=== PATIENT | male | born 1970 | race American Indian/Alaskan Native ===

== ENCOUNTER 2020-06-22 14:08 | Inpatient (IN) | payer OTHER ==
--- NOTE | 2020-06-22 15:14 | XRay Report ---
CHEST 2 VIEWS INDICATION / CLINICAL INFORMATION: shortness of breath. COMPARISON: None available. FINDINGS: SUPPORT DEVICES: None. HEART / MEDIASTINUM: There is mild enlargement of the cardiac silhouette LUNGS / PLEURA: There is airspace opacity noted in the right lower lobe suspicious for pneumonia No p neumothorax. ADDITIONAL FINDINGS: No significant additional findings. IMPRESSION: 1. There is airspace opacity in right lower lobe suspicious for pneumonia. 2. There is mild enlargement of the cardiac silhouette Signer Name: Jerrell Bronson MD Signed: 06/22/2020 3:10 PM Workstation Name: [id number]
--- NOTE | 2020-06-22 15:33 | Event Note ---
ED Screening Note ED Screening Note: Patient presents for shortness of breath, chest pain, cough for a month He states it is a nonproductive cough He states his shortness of breath is worse with exertion He denies any fever, vomiting, diarrhea, leg swelling He states that he has not seen a doctor in a very long time or had his blood pressure checked He denies any sick contacts or recent travel He is a current every day smoker No allergies to medications This initial assessment/diagnostic orders/clinical plan/treatment(s) is/are subject to change based on patients health status, clinical progression and re- assessment by fellow clinical providers in the ED. Further treatment and workup at subsequent clinical providers discretion. Patient/guardian urged not to elope from the ED as their condition may be serious if not clinically assessed and managed. Initial orders include: Labs, EKG, chest x-ray
[2020-06-22 15:42] LABS: Hematocrit 39.5 % (35.5-45.6); Hemoglobin 13.4 gm/dl (11.8-15.2); Mean Corpuscular HGB Conc 34 % (32-34); Mean Corpuscular Volume 90 fl (84-94); Platelet Count 254 K/mm3 (140-440); Red Blood Count 4.38 M/mm3 (3.65-5.03); Red Cell Distribution Width 13.7 % (13.2-15.2)
[2020-06-22 16:05] LABS: Alanine Aminotransferase 24 units/L (7-56); BUN/Creatinine Ratio 15; Blood Urea Nitrogen 18 mg/dL (9-20); Calcium 8.4 mg/dL (8.4-10.2); Hemolysis Index 6
[2020-06-22 16:35] LABS: Chol/HDL Ratio 4.25 %; HDL Cholesterol 39 mg/dL (40-59); LDL Cholesterol,Direct 117 mg/dL (50-130)
[2020-06-22 16:36] LABS: Total Cells Counted 100
[2020-06-22 16:37] LABS: RBC Morphology Normal
--- NOTE | 2020-06-22 18:04 | Emergency Department Report ---
ED General Adult HPI - General Chief complaint: Upper Respiratory Infection Stated complaint: DIFF BREATHING Time Seen by Provider: 06/22/20 15:30 Source: patient Mode of arrival: Ambulatory Limitations: No Limitations - History of Present Illness Initial comments: Patient is a 49-year-old male with no significant past medical history who presents to the emergency department for evaluation of 1 month history of exertional dyspnea with occasional nonproductive cough and possible tactile fever. Patient denies chest pain, denies history of high blood pressure, hypercholesterolemia, heart disease, or diabetes. Patient does note his mother had heart disease and that he has not seen a primary physician in quite some time. - Related Data Previous Rx's Medication Instructions Recorded Last Taken Type Ibuprofen [Motrin] 800 mg PO Q8HR PRN #90 tablet 03/23/15 Unknown Rx Sulfamethoxazole/Trimethoprim 1 each PO BID #20 tablet 03/23/15 Unknown Rx [Bactrim DS TAB] traMADoL [Ultram] 50 mg PO Q6HR PRN #14 tablet 03/23/15 Unknown Rx Allergies Allergy/AdvReac Type Severity Reaction Status Date / Time No Known Allergies Allergy Unverified 03/23/15 18:28 ED Review of Systems ROS: Stated complaint: DIFF BREATHING Other details as noted in HPI Comment: All other systems reviewed and negative ED Past Medical Hx - Past Medical History Previous Medical History?: No - Surgical History Past Surgical History?: No - Social History Smoking Status: Current Every Day Smoker - Medications Home Medications: Home Medications Medication Instructions Recorded Confirmed Last Taken Type Ibuprofen [Motrin] 800 mg PO Q8HR PRN #90 tablet 03/23/15 Unknown Rx Sulfamethoxazole/Trimethoprim 1 each PO BID #20 tablet 15 Unknown Rx [Bactrim DS TAB] traMADoL [Ultram] 50 mg PO Q6HR PRN #14 tablet 03/23/15 Unknown Rx ED Physical Exam - General Limitations: No Limitations General appearance: alert, in no apparent distress - Head Head exam: Present: atraumatic, normocephalic - Eye Eye exam: Present: normal appearance - ENT ENT exam: Present: mucous membranes moist - Neck Neck exam: Present: normal inspection - Respiratory Respiratory exam: Present: rales, rhonchi - Cardiovascular Cardiovascular Exam: Present: regular rate, normal rhythm - GI/Abdominal GI/Abdominal exam: Present: soft, normal bowel sounds - Rectal Rectal exam: Present: deferred - Extremities Exam Extremities exam: Present: normal inspection - Back Exam Back exam: Present: normal inspection - Neurological Exam Neurological exam: Present: alert, oriented X3 - Psychiatric Psychiatric exam: Present: normal affect, normal mood - Skin Skin exam: Present: warm, dry, intact, normal color. Absent: rash ED Course Vital Signs 06/22/20 06/22/20 14:14 18:12 Temperature 98.3 F Pulse Rate 101 H Respiratory 20 18 Rate Blood Pressure 188/118 O2 Sat by Pulse 99 100 Oximetry - Reevaluation(s) Reevaluation #1: Patient initially treated with IV furosemide, IV Rocephin, IV azithromycin, p.o. aspirin, and p.o. potassium. 06/22/20 18:14 06/22/20 18:15 ED Medical Decision Making - Lab Data Result diagrams: 06/22/20 15:32 06/22/20 15:32 Lab Results 06/22/20 06/22/20 Range/Units 15:32 15:32 WBC 5.5 (4.5-11.0) K/mm3 RBC 4.38 (3.65-5.03) M/mm3 Hgb 13.4 (11.8-15.2) gm/dl Hct 39.5 (35.5-45.6) % MCV 90 (84-94) fl MCH 31 (28-32) pg MCHC 34 (32-34) % RDW 13.7 (13.2-15.2) % Plt Count 254 (140-440) K/mm3 [place] % (Auto) Physical Scientist Add Manual Diff Complete Total Counted 100 Seg Neuts % (Manual) 62.0 (40.0-70.0) % Lymphocytes % (Manual) 23.0 (13.4-35.0) % Monocytes % (Manual) 15.0 H (0.0-7.3) % Nucleated RBC % Not Reportable Seg Neutrophils # Man 3.4 (1.8-7.7) K/mm3 Band Neutrophils # 0.0 K/mm3 Lymphocytes # (Manual) 1.3 (1.2-5.4) K/mm3 Abs React Lymphs (Man) 0.0 K/mm3 Monocytes # (Manual) 0.8 (0.0-0.8) K/mm3 Eosinophils # (Manual) 0.0 (0.0-0.4) K/mm3 Basophils # (Manual) 0.0 (0.0-0.1) K/mm3 Metamyelocytes # 0.0 K/mm3 Myelocytes # 0.0 K/mm3 Promyelocytes # 0.0 K/mm3 Blast Cells # 0.0 K/mm3 WBC Morphology Not Reportable Hypersegmented Neuts Not Reportable Hyposegmented Neuts Not Reportable Hypogranular Neuts Not Reportable Smudge Cells Not Reportable Toxic Granulation Not Reportable Toxic Vacuolation Not Reportable Dohle Bodies Not Reportable Pelger-Huet Anomaly Not Reportable Andrzej Rods Not Reportable Platelet Estimate Not Reportable Clumped Platelets Not Reportable Plt Clumps, EDTA Not Reportable Large Platelets Not Reportable Giant Platelets Not Reportable Platelet Satelliting Not Reportable Plt Morphology Comment Not Reportable RBC Morphology Normal Dimorphic RBCs Not Reportable Polychromasia Not Reportable Hypochromasia Not Reportable Poikilocytosis Not Reportable Anisocytosis Not Reportable Microcytosis Not Reportable Macrocytosis Not Reportable Spherocytes Not Reportable Pappenheimer Bodies Not Reportable Sickle Cells Not Reportable Target Cells Not Reportable Tear Drop Cells Not Reportable Ovalocytes Not Reportable Helmet Cells Not Reportable [place] Bodies Not Reportable [place] Rings Not Reportable [place] Cells Not Reportable Bite Cells Not Reportable Crenated Cell Not Reportable Elliptocytes Not Reportable Acanthocytes (Spur) Not Reportable Rouleaux Not Reportable Hemoglobin C Crystals Not Reportable Schistocytes Not Reportable Malaria parasites Not Reportable [place] Bodies Not Reportable Hem Pathologist Commnt No Sodium 140 (137-145) mmol/L Potassium 3.2 L (3.6-5.0) mmol/L Chloride 102.8 (98-107) mmol/L Carbon Dioxide 24 (22-30) mmol/L Anion Gap 16 mmol/L BUN 18 (9-20) mg/dL Creatinine 1.2 (0.8-1.3) mg/dL Estimated GFR > 60 ml/min BUN/Creatinine Ratio 15 % Glucose 110 H (75-100) mg/dL Calcium 8.4 (8.4-10.2) mg/dL Total Bilirubin 0.40 (0.1-1.2) mg/dL AST 21 (5-40) units/L ALT 24 (7-56) units/L Alkaline Phosphatase 97 (35-129) units/L Troponin T 0.062 H (0.00-0.029) ng/mL NT-Pro-B Natriuret Pep 2400 H (0-900) pg/mL Total Protein 6.3 (6.3-8.2) g/dL Albumin 4.0 (3.9-5) g/dL Albumin/Globulin Ratio 1.7 % Triglycerides 105 (2-149) mg/dL Cholesterol 166 (50-199) mg/dL LDL Cholesterol Direct 117 (50-130) mg/dL HDL Cholesterol 39 L (40-59) mg/dL Cholesterol/HDL Ratio 4.25 % Vital Signs 06/22/20 06/22/20 14:14 18:12 Temperature 98.3 F Pulse Rate 101 H Respiratory 20 18 Rate Blood Pressure 188/118 O2 Sat by Pulse 99 100 Oximetry - EKG Data -: EKG Interpreted by Me (Sinus rhythm at 98, nonspecific ST-T changes, inverted T V5 V6, normal QRS) - Radiology Data Referring Physician: KIARA GARDNER Patient Name: LUIS ALBERTO MARCUM Date of : 1970 Sex: Male Report Date: 2020-06-22 Report Status: [place] [address] XRay Report Signed Patient: LUIS ALBERTO MARCUM MR#: [id number] : 1970 Acct:[id number] Age/Sex: 49 / M ADM Date: 06/22/20 Loc: ED Attending Dr: Ordering Physician: KIARA GARDNER Date of Service: 06/22/20 Procedure(s): XR chest routine 2V Accession Number(s): [id number] cc: KIARA GARDNER Fluoro Time In Minutes: CHEST 2 VIEWS INDICATION / CLINICAL INFORMATION: shortness of breath. COMPARISON: None available. FINDINGS: SUPPORT DEVICES: None. HEART / MEDIASTINUM: There is mild enlargement of the cardiac silhouette LUNGS / PLEURA: There is airspace opacity noted in the right lower lobe suspicious for pneumonia No pneumothorax. ADDITIONAL FINDINGS: No significant additional findings. IMPRESSION: 1. There is airspace opacity in right lower lobe suspicious for pneumonia. 2. There is mild enlargement of the cardiac silhouette Signer Name: Jerrell Siegal MD Signed: 06/22/2020 3:10 PM Workstation Name: [id number] Transcribed By: GÓMEZ Dictated By: Jerrell Bronson MD Electronically Authenticated By: Jerrell Bronson MD Signed Date/Time: 06/22/20 1510 - Medical Decision Making Referring Physician: KIARA GARDNER Patient Name: LUIS ALBERTO MARCUM Date of : 1970 Sex: Male Report Date: 2020-06-22 Report Status: Finalized [facility] [address] [place] [address] XRay Report Signed Patient: LUIS ALBERTO MARCUM MR#: [id number] : 1970 Acct:[id number] Age/Sex: 49 / M ADM Date: 06/22/20 Loc: ED Attending Dr: Ordering Physician: KIARA GARDNER Date of Service: 06/22/20 Procedure(s): XR chest routine 2V Accession Number(s): [id number] cc: KIARA GARDNER Fluoro Time In Minutes: CHEST 2 VIEWS INDICATION / CLINICAL INFORMATION: shortness of breath. COMPARISON: None available. FINDINGS: SUPPORT DEVICES: None. HEART / MEDIASTINUM: There is mild enlargement of the cardiac silhouette LUNGS / PLEURA: There is airspace opacity noted in the right lower lobe suspicious for pneumonia No pneumothorax. ADDITIONAL FINDINGS: No significant additional findings. IMPRESSION: 1. There is airspace opacity in right lower lobe suspicious for pneumonia. 2. There is mild enlargement of the cardiac silhouette Signer Name: Jerrell Bronson MD Signed: 06/22/2020 3:10 PM Workstation Name: [id number] Transcribed By: SS Dictated By: Jerrell Bronson MD Electronically Authenticated By: Jerrell Bronson MD Signed Date/Time: 06/22/201509 Critical care attestation.: If time is entered above; I have spent that time in minutes in the direct care of this critically ill patient, excluding procedure time. ED Disposition Clinical Impression: Community acquired pneumonia, New onset of congestive heart failure Disposition: OP ADMIT IP TO THIS HOSP Is pt being admited?: Yes Does the pt Need Aspirin: Yes Condition: Stable Instructions: Bacterial Pneumonia (ED) Referrals: PRIMARY CARE, [Primary Care Provider] - 3-5 Days HEART Score - HEART Score History: Moderately suspicious EKG: Non-specific Age: 45-65 Risk factors: 1-2 risk factors Troponin: Troponin T 0.062 ng/mL (0.00-0.029) H 06/22/20 15:32 Troponin: 1-3x normal limit HEART Score: 5
[2020-06-22] MEDS ORDERED: ASPIRIN 325 MG TAB PO ONE (18:05)
[2020-06-22] MEDS ORDERED: AZITHROMYCIN/NS 500 MG/250 ML 500 MG/250 ML BAG IV ONE (18:05)
[2020-06-22] MEDS ORDERED: cefTRIAXone/NS 1 GM/50 ML 1 GM/50 ML BAG IV ONE (18:05)
[2020-06-22] MEDS ORDERED: POTASSIUM CHLORIDE ER 20 MEQ TAB PO ONE (18:07)
[2020-06-22] MEDS ORDERED: FUROSEMIDE 40 MG/4 ML INJ IV ONE (18:07)
[2020-06-22 18:57] LABS: C-Reactive Protein 0.8 mg/dL (0.00-1.30)
[2020-06-22] MEDS ORDERED: ONDANSETRON 4 MG/2 ML INJ IV PRN (19:10)
[2020-06-22] MEDS ORDERED: ACETAMINOPHEN 325 MG TAB PO PRN ×2 (19:10)
[2020-06-22] MEDS ORDERED: NITROGLYCERIN 0.4 MG TAB SUBL SL PRN (19:10)
[2020-06-22] MEDS ORDERED: MORPHINE 4 MG/1 ML INJ IV PRN (19:10)
--- NOTE | 2020-06-22 19:26 | History and Physical Report ---
History of Present Illness Date of examination: 06/22/20 Date of admission: 06/22/2020 Chief complaint: Shortness of Breath Chest Pain History of present illness: 49-year-old male with no significant past medical history presenting to the emergency room today complaining of exertional dyspnea and cough which has been ongoing for about a month. He has also had some occasional fever at home but denies any chills, no nausea vomiting, no chest pain, no headache or dizziness, no diaphoresis, no abdominal pain, no hematuria or dysuria. Patient denies any sick contacts and no recent travel. Denies any contact with anyone with COVID- 19. Evaluation in the emergency room today reveals elevated troponin, EKG was nonspecific. Chest x-ray was concerning for pneumonia in the right lower lobe. Patient is being admitted for pneumonia and will also be evaluated for chest pain with elevated troponin. Past History Past Medical History: No medical history Past Surgical History: No surgical history Social history: smoking (Former Smoker) Family history: no significant family history Medications and Allergies Allergies Allergy/AdvReac Type Severity Reaction Status Date / Time No Known Allergies Allergy Unverified 03/23/15 18:28 Home Medications Medication Instructions Recorded Confirmed Last Taken Type Ibuprofen [Motrin] 800 mg PO Q8HR PRN #90 tablet 03/23/15 Unknown Rx Sulfamethoxazole/Trimethoprim 1 each PO BID #20 tablet 03/23/15 Unknown Rx [Bactrim DS TAB] traMADoL [Ultram] 50 mg PO Q6HR PRN #14 tablet 03/23/15 Unknown Rx Review of Systems Constitutional: fever, no chills Ears, nose, mouth and throat: no nasal congestion, no sore throat Cardiovascular: chest pain, no palpitations Respiratory: shortness of breath, no cough Gastrointestinal: no abdominal pain, no nausea, no vomiting, no diarrhea Genitourinary Male: no dysuria, no hematuria, no flank pain, no nocturia Musculoskeletal: no neck pain, no low back pain Integumentary: no rash, no pruritis Neurological: no headaches, no confusion Psychiatric: no anxiety, no depression Exam - Constitutional Vitals: Temp Pulse Resp BP Pulse Ox 98.3 F 101 H 18 188/118 100 06/22/20 14:14 06/22/20 14:14 06/22/20 18:12 06/22/20 14:14 06/22/20 18:12 General appearance: Present: no acute distress, well-nourished - EENT Eyes: Present: PERRL, EOM intact. Absent: scleral icterus ENT: hearing intact, clear oral mucosa, dentition normal - Neck Neck: Present: supple, normal ROM - Respiratory Respiratory effort: normal Respiratory: bilateral: diminished - Cardiovascular Rhythm: regular Heart Sounds: Present: S1 & S2. Absent: gallop, systolic murmur, diastolic murmur, rub - Extremities Extremities: no ischemia, pulses intact, pulses symmetrical, No edema, normal temperature, normal color, Full ROM Peripheral Pulses: within normal limits - Abdominal General gastrointestinal: Present: soft, non-tender, non-distended, normal bowel sounds. Absent: mass - Integumentary Integumentary: Present: clear, warm, dry. Absent: rash - Musculoskeletal Musculoskeletal: strength equal bilaterally - Psychiatric Psychiatric: appropriate mood/affect, intact judgment & insight, memory intact, cooperative - Neurologic Neurologic: CNII-XII intact, no focal deficits, moves all extremities HEART Score - HEART Score History: Moderately suspicious EKG: Non-specific Age: 45-65 Risk factors: 1-2 risk factors Troponin: Troponin T 0.064 ng/mL (0.00-0.029) H 06/22/20 18:11 Troponin: 1-3x normal limit HEART Score: 5 Results - Labs CBC & Chem 7: 06/22/20 19:48 06/22/20 19:48 Labs: Abnormal lab results 06/22/20 06/22/20 06/22/20 Range/Units 15:32 15:32 18:11 Monocytes % (Manual) 15.0 H (0.0-7.3) % D-Dimer (0-234) ng/mlDDU Potassium 3.2 L (3.6-5.0) mmol/L Glucose 110 H (75-100) mg/dL Lactate Dehydrogenase (91-180) units/L Troponin T 0.062 H 0.064 H (0.00-0.029) ng/mL NT-Pro-B Natriuret Pep 2400 H (0-900) pg/mL HDL Cholesterol 39 L (40-59) mg/dL 06/22/20 06/22/20 Range/Units 18:31 18:31 Monocytes % (Manual) (0.0-7.3) % D-Dimer 292.70 H (0-234) ng/mlDDU Potassium (3.6-5.0) mmol/L Glucose (75-100) mg/dL Lactate Dehydrogenase 257 H (91-180) units/L Troponin T (0.00-0.029) ng/mL NT-Pro-B Natriuret Pep (0-900) pg/mL HDL Cholesterol (40-59) mg/dL Assessment and Plan - Patient Problems (1) Community acquired pneumonia Current Visit: Yes Status: Acute Plan to address problem: Patient placed on empiric IV antibiotics. We will await culture results. (2) Chest pain Current Visit: Yes Status: Acute Plan to address problem: We will check serial cardiac enzymes. Patient placed on aspirin, sublingual nitroglycerin and IV morphine as needed for chest pain. We will place consult to cardiology for evaluation. (3) DVT prophylaxis Current Visit: Yes Status: Acute Plan to address problem: Patient currently on anticoagulation. (4) Full code status Current Visit: Yes Status: Acute Plan to address problem: Patient is a full code.
[2020-06-22 20:12] LABS: Hematocrit 40.5 % (35.5-45.6); Hemoglobin 13.7 gm/dl (11.8-15.2); Mean Corpuscular HGB Conc 34 % (32-34); Mean Corpuscular Volume 90 fl (84-94); Platelet Count 259 K/mm3 (140-440); Red Cell Distribution Width 13.2 % (13.2-15.2)
[2020-06-22 20:29] LABS: BUN/Creatinine Ratio 15; Blood Urea Nitrogen 16 mg/dL (9-20); Calcium 8.2 mg/dL (8.4-10.2); Hemolysis Index 15
[2020-06-22 21:07] LABS: RBC Morphology Normal; Total Cells Counted 100
[2020-06-22] MEDS ORDERED: HEPARIN 10,000 UNITS/10 ML VIAL IV PRN (21:22)
[2020-06-22] MEDS ORDERED: HEPARIN 10,000 UNITS/10 ML VIAL IV ONE (21:22)
[2020-06-22] MEDS ORDERED: HYDROmorphone 1 MG/1 ML INJ IV ONE (21:54)
[2020-06-22] MEDS ORDERED: HEPARIN 5,000 UNIT/1 ML VIAL ONE (21:58)
[2020-06-22] MEDS: HEPARIN/ 0.45% NACL DRIP 25,000 UNIT/500 ML BAG IV SCH (22:40)
[2020-06-23 01:11] LABS: Hematocrit 39.1 % (35.5-45.6); Hemoglobin 13.1 gm/dl (11.8-15.2); INR 1.45 (0.87-1.13)
[2020-06-23 06:13] LABS: Basophils % (Auto) 0.5 % (0.0-1.8); Eosinophils # (Auto) 0.1 K/mm3 (0.0-0.4); Eosinophils % (Auto) 1.3 % (0.0-4.3); Hematocrit 39.2 % (35.5-45.6); Hemoglobin 13.1 gm/dl (11.8-15.2); Lymphocytes # (Auto) 2.1 K/mm3 (1.2-5.4); Lymphocytes % (Auto) 42.3 % (13.4-35.0); Mean Corpuscular HGB Conc 33 % (32-34); Mean Corpuscular Volume 91 fl (84-94); Monocytes # (Auto) 0.7 K/mm3 (0.0-0.8); Monocytes % (Auto) 13.2 % (0.0-7.3); Platelet Count 235 K/mm3 (140-440); Red Blood Count 4.29 M/mm3 (3.65-5.03); Red Cell Distribution Width 13.3 % (13.2-15.2)
[2020-06-23 06:21] LABS: INR 1.26 (0.87-1.13)
[2020-06-23 06:29] LABS: BUN/Creatinine Ratio 13; Blood Urea Nitrogen 14 mg/dL (9-20); Calcium 8.3 mg/dL (8.4-10.2); Hemolysis Index 7
[2020-06-23] MEDS ORDERED: POTASSIUM CHLORIDE ER 20 MEQ TAB PO NR (08:00)
--- NOTE | 2020-06-23 09:27 | Consultation ---
History of Present Illness Consult date: 06/23/20 Consult reason: chest pain, elevated troponin History of present illness: This is a 49yr old M with who presents to this hospital with shortness of breath. Chest x-ray is concerning for pneumonia and he is currently on isolation protocol. COVID-19 test results are pending. In addition, patient reports chest pain. Chest pain is poorly characterized, on exertion, intermittent for several weeks. Denies palpitations and there is no lower extremity edema. No report of syncope. Patient has no prior medical history but was noted hypertensive on presentation, systolic BP of 188. Labs shows mild elevation of troponin measurement. An ECG done is sinus rhythm, LVH with repolarization abnormalities. A cardiac consultation has been requested for chest pain. Past History Past Medical History: No medical history Past Surgical History: No surgical history Social history: smoking (Former Smoker) Family history: no significant family history Medications and Allergies Allergies Allergy/AdvReac Type Severity Reaction Status Date / Time No Known Allergies Allergy Unverified 03/23/15 18:28 Home Medications Medication Instructions Recorded Confirmed Last Taken Type Ibuprofen [Motrin] 800 mg PO Q8HR PRN #90 tablet 03/23/15 Unknown Rx Sulfamethoxazole/Trimethoprim 1 each PO BID #20 tablet 03/23/15 Unknown Rx [Bactrim DS TAB] traMADoL [Ultram] 50 mg PO Q6HR PRN #14 tablet 03/23/15 Unknown Rx Active Meds: Active Medications Acetaminophen (Acetaminophen 325 Mg Tab) 650 mg PO Q4H PRN PRN Reason: Pain MILD(1-3)/Fever >100.5/MAYS Aspirin (Aspirin Ec 325 Mg Tab) 325 mg PO QDAY CAMRYN Ceftriaxone Sodium (Rocephin/Ns 2 Gm/100 Ml) 2 gm in 100 mls @ 200 mls/hr IV Q24H CAMRYN; Protocol Azithromycin 500 mg/ Sodium (Chloride) 250 mls @ 250 mls/hr IV Q24H CAMRYN; Protocol Stop: 06/26/20 20:59 Heparin Sodium/Sodium Chloride (Heparin/ 0.45% Nacl-25,000 Unit/500 Ml) 25,000 unit in 500 mls @ 20 mls/hr IV TITRATE CAMRYN; Protocol Last Titration: 06/23/20 06:26 Dose: 1,100 units/hr, 22 mls/hr Documented by: Morphine Sulfate (Morphine 4 Mg/1 Ml Inj) 2 mg IV Q5MIN PRN PRN Reason: Chest Pain Nitroglycerin (Nitroglycerin 0.4 Mg Tab Subl) 0.4 mg SL Q5M PRN PRN Reason: Chest Pain Ondansetron HCl (Ondansetron 4 Mg/2 Ml Inj) 4 mg IV Q8H PRN PRN Reason: Nausea And Vomiting Potassium Chloride (Potassium Chloride Er 20 Meq Tab) 40 meq PO ONCE@0800 NR Stop: 06/23/20 11:00 Last Admin: 06/23/20 08:43 Dose: 40 meq Documented by: Sodium Chloride (Sodium Chloride 0.9% 10 Ml Flush Syringe) 10 ml IV BID CAMRYN Last Admin: 06/22/20 22:40 Dose: 10 ml Documented by: Sodium Chloride (Sodium Chloride 0.9% 10 Ml Flush Syringe) 10 ml IV PRN PRN PRN Reason: LINE FLUSH Review of Systems Cardiovascular: chest pain, shortness of breath, no palpitations, no rapid/irregular heart beat, no edema, no syncope, no lightheadedness Physical Examination Vital Signs Temp Pulse Resp BP Pulse Ox 98.3 F 101 H 20 188/118 99 06/22/20 14:14 06/22/20 14:14 06/22/20 14:14 06/22/20 14:14 06/22/20 14:14 Narrative exam: Deferred due to isolation protocol Results 06/23/20 04:43 06/23/20 04:43 Cardiac Enzymes 06/22/20 06/22/20 Range/Units 15:32 18:31 AST 21 (5-40) units/L Lactate Dehydrogenase 257 H (91-180) units/L Coagulation 06/23/20 06/23/20 Range/Units 00:00 04:43 PT 17.6 H 15.8 H (12.2-14.9) Sec. INR 1.45 H 1.26 H (0.87-1.13) APTT 72.0 H* (24.2-36.6) Sec. Lipids 06/22/20 Range/Units 15:32 Triglycerides 105 (2-149) mg/dL Cholesterol 166 (50-199) mg/dL HDL Cholesterol 39 L (40-59) mg/dL Cholesterol/HDL Ratio 4.25 % CBC 06/22/20 06/22/20 06/23/20 Range/Units 15:32 19:48 00:00 WBC 5.5 4.7 (4.5-11.0) K/mm3 RBC 4.38 4.50 (3.65-5.03) M/mm3 Hgb 13.4 13.7 13.1 (11.8-15.2) gm/dl Hct 39.5 40.5 39.1 (35.5-45.6) % Plt Count 254 259 236 (140-440) K/mm3 Lymph # (Auto) (1.2-5.4) K/mm3 [place] # (Auto) (0.0-0.8) K/mm3 Eos # (Auto) (0.0-0.4) K/mm3 Baso # (Auto) (0.0-0.1) K/mm3 06/23/20 Range/Units 04:43 WBC 5.0 (4.5-11.0) K/mm3 RBC 4.29 (3.65-5.03) M/mm3 Hgb 13.1 (11.8-15.2) gm/dl Hct 39.2 (35.5-45.6) % Plt Count 235 (140-440) K/mm3 Lymph # (Auto) 2.1 (1.2-5.4) K/mm3 [place] # (Auto) 0.7 (0.0-0.8) K/mm3 Eos # (Auto) 0.1 (0.0-0.4) K/mm3 Baso # (Auto) 0.0 (0.0-0.1) K/mm3 Comprehensive Metabolic Panel 06/22/20 06/22/20 06/22/20 Range/Units 15:32 18:31 19:48 Sodium 140 138 (137-145) mmol/L Potassium 3.2 L 3.6 (3.6-5.0) mmol/L Chloride 102.8 101.1 (98-107) mmol/L Carbon Dioxide 24 22 (22-30) mmol/L BUN 18 16 (9-20) mg/dL Creatinine 1.2 1.1 (0.8-1.3) mg/dL Glucose 110 H 92 103 H (75-100) mg/dL Calcium 8.4 8.2 L (8.4-10.2) mg/dL AST 21 (5-40) units/L ALT 24 (7-56) units/L Alkaline Phosphatase 97 (35-129) units/L Total Protein 6.3 (6.3-8.2) g/dL Albumin 4.0 (3.9-5) g/dL 06/23/20 Range/Units 04:43 Sodium 140 (137-145) mmol/L Potassium 3.2 L (3.6-5.0) mmol/L Chloride 100.2 (98-107) mmol/L Carbon Dioxide 28 (22-30) mmol/L BUN 14 (9-20) mg/dL Creatinine 1.1 (0.8-1.3) mg/dL Glucose 94 (75-100) mg/dL Calcium 8.3 L (8.4-10.2) mg/dL AST (5-40) units/L ALT (7-56) units/L Alkaline Phosphatase (35-129) units/L Total Protein (6.3-8.2) g/dL Albumin (3.9-5) g/dL Assessment and Plan - Patient Problems (1) Chest pain Current Visit: Yes Status: Acute
[2020-06-23] MEDS: ASPIRIN EC 325 MG TAB PO SCH (09:36)
--- NOTE | 2020-06-23 10:59 | Progress Note ---
Assessment and Plan Assessment and plan: (1) Community acquired pneumonia Current Visit: Yes Status: Acute Plan to address problem: Patient placed on empiric IV antibiotics. COVID-19 test pending (2) Chest pain Current Visit: Yes Status: Acute Plan to address problem: Cardiology evaluation Plan for stress test after COVID result comes out (3) DVT prophylaxis Current Visit: Yes Status: Acute Plan to address problem: Patient currently on anticoagulation. (4) Full code status Current Visit: Yes Status: Acute Plan to address problem: Patient is a full code. History Interval history: Denies any chest pain Lexiscan cancelled for now. Awaiting COVID-19 test Hospitalist Physical - Physical exam Narrative exam: VITAL SIGNS: Reviewed. GENERAL: Awake HEAD: No signs of head trauma. EYES: Pupils are equal. Extraocular motions intact. MOUTH: Oropharynx is normal. NECK: No adenopathy, no JVD. CHEST: Chest with diminished breath sounds bilaterally. No wheezes, rales, or rhonchi. CARDIAC: normal S1 and S2, without murmurs, gallops, or rubs. ABDOMEN: Soft, non tender and non distended. No rebound or guarding, and no masses palpated. Bowel Sounds normal. MUSCULOSKELETAL: No edema NEUROLOGIC EXAM: Alert and oriented x3. No focal neurologic deficits SKIN: No obvious lesions - Constitutional Vitals: Temp Pulse Resp BP Pulse Ox 98.2 F 77 18 151/94 92 06/23/20 05:22 06/23/20 06:29 06/23/20 06:29 06/23/20 06:29 06/23/20 06:29 HEART Score - HEART Score EKG: Non-specific Age: 45-65 Risk factors: 1-2 risk factors Troponin: Troponin T 0.055 ng/mL (0.00-0.029) H 06/23/20 04:43 Troponin: 1-3x normal limit Results - Labs CBC & Chem 7: 06/23/20 04:43 06/23/20 04:43 Labs: Laboratory Last Values WBC 5.0 K/mm3 (4.5-11.0) 06/23/20 04:43 RBC 4.29 M/mm3 (3.65-5.03) 06/23/20 04:43 Hgb 13.1 gm/dl (11.8-15.2) 06/23/20 04:43 Hct 39.2 % (35.5-45.6) 06/23/20 04:43 MCV 91 fl (84-94) 06/23/20 04:43 MCH 31 pg (28-32) 06/23/20 04:43 MCHC 33 % (32-34) 06/23/20 04:43 RDW 13.3 % (13.2-15.2) 06/23/20 04:43 Plt Count 235 K/mm3 (140-440) 06/23/20 04:43 Lymph % (Auto) 42.3 % (13.4-35.0) H 06/23/20 04:43 [place] % (Auto) 13.2 % (0.0-7.3) H 06/23/20 04:43 Eos % (Auto) 1.3 % (0.0-4.3) 06/23/20 04:43 Baso % (Auto) 0.5 % (0.0-1.8) 06/23/20 04:43 Lymph # (Auto) 2.1 K/mm3 (1.2-5.4) 06/23/20 04:43 [place] # (Auto) 0.7 K/mm3 (0.0-0.8) 06/23/20 04:43 Eos # (Auto) 0.1 K/mm3 (0.0-0.4) 06/23/20 04:43 Baso # (Auto) 0.0 K/mm3 (0.0-0.1) 06/23/20 04:43 Add Manual Diff Complete 06/22/20 19:48 Total Counted 100 06/22/20 19:48 Seg Neutrophils % 42.7 % (40.0-70.0) 06/23/20 04:43 Seg Neuts % (Manual) 59.0 % (40.0-70.0) 06/22/20 19:48 Lymphocytes % (Manual) 24.0 % (13.4-35.0) 06/22/20 19:48 Monocytes % (Manual) 15.0 % (0.0-7.3) H 06/22/20 19:48 Eosinophils % (Manual) 2.0 % (0.0-4.3) 06/22/20 19:48 Nucleated RBC % Not Reportable 06/22/20 19:48 Seg Neutrophils # 2.1 K/mm3 (1.8-7.7) 06/23/20 04:43 Seg Neutrophils # Man 2.8 K/mm3 (1.8-7.7) 06/22/20 19:48 Band Neutrophils # 0.0 K/mm3 06/22/20 19:48 Lymphocytes # (Manual) 1.1 K/mm3 (1.2-5.4) L 06/22/20 19:48 Abs React Lymphs (Man) 0.0 K/mm3 06/22/20 19:48 Monocytes # (Manual) 0.7 K/mm3 (0.0-0.8) 06/22/20 19:48 Eosinophils # (Manual) 0.1 K/mm3 (0.0-0.4) 06/22/20 19:48 Basophils # (Manual) 0.0 K/mm3 (0.0-0.1) 06/22/20 19:48 Metamyelocytes # 0.0 K/mm3 06/22/20 19:48 Myelocytes # 0.0 K/mm3 06/22/20 19:48 Promyelocytes # 0.0 K/mm3 06/22/20 19:48 Blast Cells # 0.0 K/mm3 06/22/20 19:48 WBC Morphology Not Reportable 06/22/20 19:48 Hypersegmented Neuts Not Reportable 06/22/20 19:48 Hyposegmented Neuts Not Reportable 06/22/20 19:48 Hypogranular Neuts Not Reportable 06/22/20 19:48 Smudge Cells Not Reportable 06/22/20 19:48 Toxic Granulation Not Reportable 06/22/20 19:48 Toxic Vacuolation Not Reportable 06/22/20 19:48 Dohle Bodies Not Reportable 06/22/20 19:48 Pelger-Huet Anomaly Not Reportable 06/22/20 19:48 Andrzej Rods Not Reportable 06/22/20 19:48 Platelet Estimate Not Reportable 06/22/20 19:48 Clumped Platelets Not Reportable 06/22/20 19:48 Plt Clumps, EDTA Not Reportable 06/22/20 19:48 Large Platelets Not Reportable 06/22/20 19:48 Giant Platelets Not Reportable 06/22/20 19:48 Platelet Satelliting Not Reportable 06/22/20 19:48 Plt Morphology Comment Not Reportable 06/22/20 19:48 RBC Morphology Normal 06/22/20 19:48 Dimorphic RBCs Not Reportable 06/22/20 19:48 Polychromasia Not Reportable 06/22/20 19:48 Hypochromasia Not Reportable 06/22/20 19:48 Poikilocytosis Not Reportable 06/22/20 19:48 Anisocytosis Not Reportable 06/22/20 19:48 Microcytosis Not Reportable 06/22/20 19:48 Macrocytosis Not Reportable 06/22/20 19:48 Spherocytes Not Reportable 06/22/20 19:48 Pappenheimer Bodies Not Reportable 06/22/20 19:48 Sickle Cells Not Reportable 06/22/20 19:48 Target Cells Not Reportable 06/22/20 19:48 Tear Drop Cells Not Reportable 06/22/20 19:48 Ovalocytes Not Reportable 06/22/20 19:48 Helmet Cells Not Reportable 06/22/20 19:48 [place] Bodies Not Reportable 06/22/20 19:48 [place] Rings Not Reportable 06/22/20 19:48 [place] Cells Not Reportable 06/22/20 19:48 Bite Cells Not Reportable 06/22/20 19:48 Crenated Cell Not Reportable 06/22/20 19:48 Elliptocytes Not Reportable 06/22/20 19:48 Acanthocytes (Spur) Not Reportable 06/22/20 19:48 Rouleaux Not Reportable 06/22/20 19:48 Hemoglobin C Crystals Not Reportable 06/22/20 19:48 Schistocytes Not Reportable 06/22/20 19:48 Malaria parasites Not Reportable 06/22/20 19:48 [place] Bodies Not Reportable 06/22/20 19:48 Hem Pathologist Commnt No 06/22/20 19:48 PT 15.8 Sec. (12.2-14.9) H 06/23/20 04:43 INR 1.26 (0.87-1.13) H 06/23/20 04:43 APTT 72.0 Sec. (24.2-36.6) H* 06/23/20 00:00 D-Dimer 292.70 ng/mlDDU (0-234) H 06/22/20 18:31 Heparin Anti-Xa Level 0.10 U.I./ml (0.3-0.7) L 06/23/20 04:43 Sodium 140 mmol/L (137-145) 06/23/20 04:43 Potassium 3.2 mmol/L (3.6-5.0) L 06/23/20 04:43 Chloride 100.2 mmol/L (98-107) 06/23/20 04:43 Carbon Dioxide 28 mmol/L (22-30) 06/23/20 04:43 Anion Gap 15 mmol/L 06/23/20 04:43 BUN 14 mg/dL (9-20) 06/23/20 04:43 Creatinine 1.1 mg/dL (0.8-1.3) 06/23/20 04:43 Estimated GFR > 60 ml/min 06/23/20 04:43 BUN/Creatinine Ratio 13 % 06/23/20 04:43 Glucose 94 mg/dL (75-100) 06/23/20 04:43 Lactic Acid 1.60 mmol/L (0.7-2.0) 06/22/20 18:26 Calcium 8.3 mg/dL (8.4-10.2) L 06/23/20 04:43 Ferritin 187.3 ng/mL (30.0-300.0) 06/22/20 18:31 Total Bilirubin 0.40 mg/dL (0.1-1.2) 06/22/20 15:32 AST 21 units/L (5-40) 06/22/20 15:32 ALT 24 units/L (7-56) 06/22/20 15:32 Alkaline Phosphatase 97 units/L (35-129) 06/22/20 15:32 Lactate Dehydrogenase 257 units/L (91-180) H 06/22/20 18:31 Troponin T 0.055 ng/mL (0.00-0.029) H 06/23/20 04:43 C-Reactive Protein 0.80 mg/dL (0.00-1.30) 06/22/20 18:31 NT-Pro-B Natriuret Pep 2400 pg/mL (0-900) H 06/22/20 15:32 Total Protein 6.3 g/dL (6.3-8.2) 06/22/20 15:32 Albumin 4.0 g/dL (3.9-5) 06/22/20 15:32 Albumin/Globulin Ratio 1.7 % 06/22/20 15:32 Triglycerides 105 mg/dL (2-149) 06/22/20 15:32 Cholesterol 166 mg/dL (50-199) 06/22/20 15:32 LDL Cholesterol Direct 117 mg/dL (50-130) 06/22/20 15:32 HDL Cholesterol 39 mg/dL (40-59) L 06/22/20 15:32 Cholesterol/HDL Ratio 4.25 % 06/22/20 15:32 Procalcitonin < 0.05 ng/mL (<0.15) 06/22/20 18:31 Microbiology: Microbiology 06/22/20 18:26 Peripheral/Venous Blood Culture - Preliminary Culture in Progress 06/22/20 18:26 Peripheral/Venous Blood Culture - Preliminary Culture in Progress Ayoub/IV: Voiding Method Toilet IV Catheter Type [Right INT / Saline Lock Forearm] Active Medications - Current Medications Current Medications: Generic Name Dose Route Start Last Admin Trade Name Freq PRN Reason Stop Dose Admin Acetaminophen 650 mg 06/22/20 19:10 Acetaminophen 325 Mg Tab PO Q4H PRN Pain MILD(1-3)/Fever >100.5/MAYS Aspirin 325 mg 06/23/20 10:00 06/23/20 09:36 Aspirin Ec 325 Mg Tab PO 325 mg QDAY CAMRYN Administration Ceftriaxone Sodium 2 gm in 100 mls @ 200 mls/hr 06/23/20 20:00 Rocephin/Ns 2 Gm/100 Ml IV Q24H CAMRYN Protocol Azithromycin 500 mg/ Sodium 250 mls @ 250 mls/hr 06/23/20 20:00 Chloride IV 06/26/20 20:59 Q24H CAMRYN Protocol Heparin Sodium/Sodium Chloride 25,000 unit in 500 mls @ 20 mls/hr 06/22/20 22:00 06/23/20 06:26 Heparin/ 0.45% Nacl-25,000 Unit/500 Ml IV 1,100 units/hr TITRATE CAMRYN 22 mls/hr Titration Protocol 1,000 UNITS/HR Morphine Sulfate 2 mg 06/22/20 19:10 Morphine 4 Mg/1 Ml Inj IV Q5MIN PRN Chest Pain Nitroglycerin 0.4 mg 06/22/20 19:10 Nitroglycerin 0.4 Mg Tab Subl SL Q5M PRN Chest Pain Ondansetron HCl 4 mg 06/22/20 19:10 Ondansetron 4 Mg/2 Ml Inj IV Q8H PRN Nausea And Vomiting Potassium Chloride 40 meq 06/23/20 08:00 06/23/20 08:43 Potassium Chloride Er 20 Meq Tab PO 06/23/20 11:00 40 meq ONCE@0800 NR Administration Sodium Chloride 10 ml 06/22/20 22:00 06/22/20 22:40 Sodium Chloride 0.9% 10 Ml Flush Syringe IV 10 ml BID CAMRYN Administration Sodium Chloride 10 ml 06/22/20 19:10 Sodium Chloride 0.9% 10 Ml Flush Syringe IV PRN PRN LINE FLUSH
[2020-06-23] MEDS: NIFEdipine XL 60 MG TAB PO SCH (12:52)
--- NOTE | 2020-06-23 15:20 | Consultation ---
History of Present Illness - Reason for Consult Consult date: 06/23/20 - History of Present Illness 49-year-old man no past medical history brought to the emergency room complaining of shortness of breath on exertion. Began approximately 1 month prior to admission. He complains of some subjective fevers at home, denies any chills, vomiting. He does not know of any positive COVID-19 contacts. Afebrile with a normal white count. Normal renal function and normal procalcitonin. Covid testing pending. Currently on ceftriaxone and azithromycin. Blood cultures currently pending. Imaging personally reviewed: Chest x-ray: Airspace opacity in the right lower lobe Review of systems: Deferred due to PPE conservation strategy. Past History Past Medical History: No medical history Past Surgical History: No surgical history Social history: smoking (Former Smoker) Family history: no significant family history Medications and Allergies Allergies Allergy/AdvReac Type Severity Reaction Status Date / Time No Known Allergies Allergy Unverified 03/23/15 18:28 Home Medications Medication Instructions Recorded Confirmed Last Taken Type Ibuprofen [Motrin] 800 mg PO Q8HR PRN #90 tablet 03/23/15 Unknown Rx Sulfamethoxazole/Trimethoprim 1 each PO BID #20 tablet 03/23/15 Unknown Rx [Bactrim DS TAB] traMADoL [Ultram] 50 mg PO Q6HR PRN #14 tablet 03/23/15 Unknown Rx Active Meds: Active Medications Acetaminophen (Acetaminophen 325 Mg Tab) 650 mg PO Q4H PRN PRN Reason: Pain MILD(1-3)/Fever >100.5/MAYS Aspirin (Aspirin Ec 325 Mg Tab) 325 mg PO QDAY CAMRYN Last Admin: 06/23/20 09:36 Dose: 325 mg Documented by: Ceftriaxone Sodium (Rocephin/Ns 2 Gm/100 Ml) 2 gm in 100 mls @ 200 mls/hr IV Q24H CAMRYN; Protocol Azithromycin 500 mg/ Sodium (Chloride) 250 mls @ 250 mls/hr IV Q24H CAMRYN; Protocol Stop: 06/26/20 20:59 Heparin Sodium/Sodium Chloride (Heparin/ 0.45% Nacl-25,000 Unit/500 Ml) 25,000 unit in 500 mls @ 20 mls/hr IV TITRATE CAMRYN; Protocol Last Titration: 06/23/20 06:26 Dose: 1,100 units/hr, 22 mls/hr Documented by: Morphine Sulfate (Morphine 4 Mg/1 Ml Inj) 2 mg IV Q5MIN PRN PRN Reason: Chest Pain Nifedipine (Nifedipine Xl 60 Mg Tab) 60 mg PO QDAY [facility] Last Admin: 06/23/20 12:52 Dose: 60 mg Documented by: Nitroglycerin (Nitroglycerin 0.4 Mg Tab Subl) 0.4 mg SL Q5M PRN PRN Reason: Chest Pain Ondansetron HCl (Ondansetron 4 Mg/2 Ml Inj) 4 mg IV Q8H PRN PRN Reason: Nausea And Vomiting Sodium Chloride (Sodium Chloride 0.9% 10 Ml Flush Syringe) 10 ml IV BID [facility] Last Admin: 06/23/20 12:53 Dose: 10 ml Documented by: Sodium Chloride (Sodium Chloride 0.9% 10 Ml Flush Syringe) 10 ml IV PRN PRN PRN Reason: LINE FLUSH Physical Examination - Physical Exam Narrative exam: Physical exam deferred due to PPE conservation strategy. Please refer to p mike team's note. - Constitutional Vitals: Vital Signs Temp Pulse Resp BP Pulse Ox 98.2 F 77 18 151/94 92 06/23/20 05:22 06/23/20 06:29 06/23/20 06:29 06/23/20 06:29 06/23/20 06:29 Temperature -Last 24 Hours Temperature 98.2 F Temperature 97.5 F Results - Labs CBC & Chem 7: 06/23/20 04:43 06/23/20 04:43 Labs: Abnormal lab results 06/22/20 06/22/20 06/22/20 Range/Units 15:32 15:32 18:11 Lymph % (Auto) (13.4-35.0) % Nicholas % (Auto) (0.0-7.3) % Monocytes % (Manual) 15.0 H (0.0-7.3) % Lymphocytes # (Manual) (1.2-5.4) K/mm3 PT (12.2-14.9) Sec. INR (0.87-1.13) APTT (24.2-36.6) Sec. D-Dimer (0-234) ng/mlDDU Heparin Anti-Xa Level (0.3-0.7) U.I./ml Potassium 3.2 L (3.6-5.0) mmol/L Glucose 110 H (75-100) mg/dL Calcium (8.4-10.2) mg/dL Lactate Dehydrogenase (91-180) units/L Troponin T 0.062 H 0.064 H (0.00-0.029) ng/mL NT-Pro-B Natriuret Pep 2400 H (0-900) pg/mL HDL Cholesterol 39 L (40-59) mg/dL 06/22/20 06/22/20 06/22/20 Range/Units 18:31 18:31 19:48 Lymph % (Auto) (13.4-35.0) % Nicholas % (Auto) (0.0-7.3) % Monocytes % (Manual) 15.0 H (0.0-7.3) % Lymphocytes # (Manual) 1.1 L (1.2-5.4) K/mm3 PT (12.2-14.9) Sec. INR (0.87-1.13) APTT (24.2-36.6) Sec. D-Dimer 292.70 H (0-234) ng/mlDDU Heparin Anti-Xa Level (0.3-0.7) U.I./ml Potassium (3.6-5.0) mmol/L Glucose (75-100) mg/dL Calcium (8.4-10.2) mg/dL Lactate Dehydrogenase 257 H (91-180) units/L Troponin T (0.00-0.029) ng/mL NT-Pro-B Natriuret Pep (0-900) pg/mL HDL Cholesterol (40-59) mg/dL 06/22/20 06/23/20 06/23/20 Range/Units 19:48 00:00 04:43 Lymph % (Auto) (13.4-35.0) % Nicholas % (Auto) (0.0-7.3) % Monocytes % (Manual) (0.0-7.3) % Lymphocytes # (Manual) (1.2-5.4) K/mm3 PT 17.6 H 15.8 H (12.2-14.9) Sec. INR 1.45 H 1.26 H (0.87-1.13) APTT 72.0 H* (24.2-36.6) Sec. D-Dimer (0-234) ng/mlDDU Heparin Anti-Xa Level 0.10 L (0.3-0.7) U.I./ml Potassium (3.6-5.0) mmol/L Glucose 103 H (75-100) mg/dL Calcium 8.2 L (8.4-10.2) mg/dL Lactate Dehydrogenase (91-180) units/L Troponin T (0.00-0.029) ng/mL NT-Pro-B Natriuret Pep (0-900) pg/mL HDL Cholesterol (40-59) mg/dL 06/23/20 06/23/20 06/23/20 Range/Units 04:43 04:43 04:43 Lymph % (Auto) 42.3 H (13.4-35.0) % Nicholas % (Auto) 13.2 H (0.0-7.3) % Monocytes % (Manual) (0.0-7.3) % Lymphocytes # (Manual) (1.2-5.4) K/mm3 PT (12.2-14.9) Sec. INR (0.87-1.13) APTT (24.2-36.6) Sec. D-Dimer (0-234) ng/mlDDU Heparin Anti-Xa Level (0.3-0.7) U.I./ml Potassium 3.2 L (3.6-5.0) mmol/L Glucose (75-100) mg/dL Calcium 8.3 L (8.4-10.2) mg/dL Lactate Dehydrogenase (91-180) units/L Troponin T 0.055 H (0.00-0.029) ng/mL NT-Pro-B Natriuret Pep (0-900) pg/mL HDL Cholesterol (40-59) mg/dL Assessment and Plan Cultures: Blood culture pending Covid pending A/P: 49-year-old man no known past medical history admitted to hospital complaining of 1 month shortness of breath, Covid PUI. #Right-sided pneumonia: Covid PUI. Follow-up test results. Has had prolonged symptoms of shortness of breath. May be other etiologies involved as well. Normal procalcitonin. Normal white count. Normal inflammatory markers. #Hypertension #Elevated troponins Recs: -Follow-up Covid testing -Anticoagulation per hospital protocol -Stopped antibiotics due to normal procalcitonin and white count. Thank you for the consult, we will continue to follow. Sadaf Hamilton MD [facility] ([facility] O: [phone] F: [phone]
[2020-06-23] MEDS ORDERED: AZITHROMYCIN 500 MG in SODIUM CHLORIDE 0.9% 250ML 250 ML IV SCH (20:00)
[2020-06-23] MEDS ORDERED: cefTRIAXone/NS 2 GM/100 ML 2 GM/100 ML BAG IV SCH (20:00)
[2020-06-23] MEDS: HEPARIN/ 0.45% NACL DRIP 25,000 UNIT/500 ML BAG IV SCH (22:44)
[2020-06-24 07:19] LABS: Hematocrit 41.1 % (35.5-45.6); Hemoglobin 13.8 gm/dl (11.8-15.2)
--- NOTE | 2020-06-24 09:32 | Progress Note ---
Assessment and Plan COVID-19 viral pneumonia Mild elevation in troponin unchanged on serial measurements pt currently denies chest pain Hypertension, uncertain chronicity he has not had medical contact in many years. Continue optimal blood pressure management. Otherwise, conservative cardiac management. We will follow intermittently. Subjective Date of service: 06/24/20 Interval history: No cardiac reports overnight. Blood pressure has improved. Objective Vital Signs Temp Pulse Resp BP Pulse Ox 06/24/20 06:20 18 94 06/24/20 05:31 98.5 F 90 17 141/96 91 06/23/20 23:54 98.2 F 83 20 138/88 94 06/23/20 16:50 97.9 F 98 H 18 153/99 97 06/23/20 16:48 95 H 97 06/23/20 11:06 98.1 F 97 H 20 146/102 95 - Physical Examination Narrative exam: Deferred due to isolation protocol General: No Apparent Distress Cardiac: Positive: Reg Rate and Rhythm - Labs and Meds CBC 06/24/20 Range/Units 06:33 Hgb 13.8 (11.8-15.2) gm/dl Hct 41.1 (35.5-45.6) % Plt Count 260 (140-440) K/mm3
[2020-06-24] MEDS: NIFEdipine XL 60 MG TAB PO SCH (09:45)
[2020-06-24] MEDS: ASPIRIN EC 325 MG TAB PO SCH (09:45)
--- NOTE | 2020-06-24 10:21 | Discharge Summary ---
Providers - Providers Date of Admission: 06/24/20 08:26 Date of discharge: 06/24/20 Attending physician: ANA MARIA ALLEN 06/22/20 Consult to Cardiac Rehabilitation [CONS] Routine Reason For Exam: Phase I 06/22/20 19:10 Consult to Cardiology [CONS] Routine Consulting Provider: ALEXX DAVIS Reason For Exam: chest pain , elevated troponoin Consult to Physician [CONS] Routine Comment: Consulting Provider: BRYANT IBRAHIM Physician Instructions: Reason For Exam: Pneumonia R/O COVID -19 Consult to Physician [CONS] Routine Comment: Consulting Provider: BRYANT IBRAHIM Physician Instructions: Reason For Exam: Pneumonia R/O Covid 19 Primary care physician: OPERATING ROOM SURGICAL TECHNOLOGIST Hospitalization Condition: Stable Hospital course: 49-year-old male with no significant past medical history presenting to the emergency room today complaining of exertional dyspnea and cough which has been ongoing for about a month. He has also had some occasional fever at home but denies any chills, no nausea vomiting, no chest pain, no headache or dizziness, no diaphoresis, no abdominal pain, no hematuria or dysuria. Patient denies any sick contacts and no recent travel. Denies any contact with anyone with COVID- 19. Evaluation in the emergency room today reveals elevated troponin, EKG was nonspecific. Chest x-ray was concerning for pneumonia in the right lower lobe. Patient is being admitted for pneumonia and will also be evaluated for chest pain with elevated troponin. Hospital course Patient was started on IV antibiotics for pneumonia. He was also started on heparin drip for elevated troponin. Cardiology was consulted for possible NSTEMI. Patient's COVID-19 test came up positive. Antibiotic discontinued as procalcitonin was less than 0.05. As per cardiology, patient will need to follow-up with them in the office for further evaluation after COVID-19 test has resolved. No further work-up needed as per cardiology. For his COVID-19, he will be discharged on dexamethasone for 10 days. He will have a repeat COVID-19 test performed in 2 weeks. Patient has been counseled on need to quarantine and he agrees. He had a walk test today and his sats remained above 90%. Disposition: TO HOME OR SELFCARE Time spent for discharge: 35 minutes - Discharge Diagnoses (1) Pneumonia due to COVID-19 virus Status: Acute (2) Chest pain Status: Acute (3) Community acquired pneumonia Status: Acute Core Measure Documentation - Palliative Care Palliative Care/ Comfort Measures: Not Applicable - Core Measures Any of the following diagnoses?: none Exam - Physical Exam Narrative exam: VITAL SIGNS: Reviewed. GENERAL: Awake HEAD: No signs of head trauma. EYES: Pupils are equal. Extraocular motions intact. MOUTH: Oropharynx is normal. NECK: No adenopathy, no JVD. CHEST: Chest with diminished breath sounds bilaterally. No wheezes, rales, or rhonchi. CARDIAC: normal S1 and S2, without murmurs, gallops, or rubs. ABDOMEN: Soft, non tender and non distended. No rebound or guarding, and no masses palpated. Bowel Sounds normal. MUSCULOSKELETAL: No edema NEUROLOGIC EXAM: Alert and oriented x3. No focal neurologic deficits SKIN: No obvious lesions - Constitutional Vitals: Temp Pulse Resp BP Pulse Ox 98.5 F 90 18 141/96 94 06/24/20 05:31 06/24/20 05:31 06/24/20 06:20 06/24/20 05:31 06/24/20 06:20 Plan Additional Instructions: Continue dexamethasone for 10 days. Take Lasix 40 mg x 3 days. Follow-up with cardiology in the office in 2 weeks. Return to the ER immediately if you start having worsening symptoms Follow up with: JESSICA WILLOUGHBY MD [Primary Care Provider] - 3-5 Days CLARISSE HOBSON MD [Staff Physician] - 7 Days Forms: Work/School Release Form Prescriptions: dexAMETHasone [Dexamethasone] 6 mg PO DAILY #10 tablet Furosemide [Lasix TAB] 40 mg PO QDAY #3 tablet NIFEdipine XL [Procardia Xl] 60 mg PO QDAY #30 tablet
--- NOTE | 2020-06-24 11:28 | Progress Note ---
Assessment and Plan Cultures: Blood culture pending Covid positive A/P: 49-year-old man no known past medical history admitted to hospital complaining of 1 month shortness of breath, Covid PUI. #COVID-19: Has had prolonged symptoms of shortness of breath. Normal procalcitonin. Normal white count. Normal inflammatory markers. #Hypertension #Elevated troponins Recs: -Anticoagulation per hospital protocol -Proning as able -Currently on room air, if requiring 2 L nasal cannula can start remdesivir. Thank you for the consult, we will sign off. Please call questions. Sadaf Hamilton MD [facility] O: [phone] F: [phone] Subjective Date of service: 06/24/20 Interval history: Afebrile, no acute change, Covid positive. Cultures remain negative. Objective - Exam Narrative Exam: Physical exam deferred due to PPE conservation strategy. Please refer to primary team's note. - Constitutional Vitals: Vital Signs Temp Pulse Resp BP Pulse Ox 98.5 F 90 18 141/96 94 06/24/20 05:31 06/24/20 05:31 06/24/20 06:20 06/24/20 05:31 06/24/20 06:20 Temperature -Last 24 Hours Temperature 98.5 F Temperature 98.2 F Temperature 97.9 F - Labs CBC & Chem 7: 06/24/20 06:33 06/23/20 04:43 Labs: Abnormal lab results 06/23/20 06/23/20 06/23/20 Range/Units 15:25 23:04 Unknown Heparin Anti-Xa Level < 0.10 L < 0.10 L (0.3-0.7) U.I./ml Coronavirus (PCR) Positive A (Negative) 06/24/20 Range/Units 06:33 Heparin Anti-Xa Level 0.24 L (0.3-0.7) U.I./ml Coronavirus (PCR) (Negative)
[2020-06-24 13:50] VITALS: BP 135/100
== END 2020-06-24 14:50 | disposition home or self-care (01) | DRG 177 ==
LOC: ED 14:08 → 4A 19:10 → 3A 20:41 → OBSVTOIN 06-24 08:26
PROVIDERS: ADMIT Internal Medicine Geriatric Medicine; ATTEND Internal Medicine
DX: U07.1 COVID-19 (principal); J18.9 Pneumonia, unspecified organism; I50.9 Heart failure, unspecified; I11.0 Hypertensive heart disease with heart failure; Z79.899 Other long term (current) drug therapy
CPT/HCPCS: 36415; 71046; 80048; 80053; 80061; 82140; 82728; 82947; 83615; 83880; 84145; 84484; 85007; 85014; 85018; 85025; 85049; 85379; 85520; 85610; 85730; 86140; 87040; 93005; 96361; 96365; 96366; 96367; 96375; 96376; 99406; G0378; J0456; J0696; J1644; J1940; U0003

== ENCOUNTER 2020-07-04 15:30 | Emergency (ER) | payer SELFPAY ==
[2020-07-04 16:18] VITALS: BP 192/136
--- NOTE | 2020-07-04 17:37 | Emergency Department Report ---
Chief Complaint: Medical Clearance Stated Complaint: COVID POSITIVE; NEED CLEARANCE Time Seen by Provider: 07/04/20 17:32 - HPI History of Present Illness: Patient is a 49-year-old male who presents emergency room for return to work clearance. He was admitted in the hospital on 06/22/2020 and discharged on 06/24/2020 due to COVID-19. He states he is completely asymptomatic now. He denies any shortness of breath, chest pain, vision changes, headache, numbness, weakness, nausea, vomiting, speech disturbance, gait disturbance. He states that he just needs a note stating that he is clear from Covid and is free to go back to work. Patient has not followed up with a primary care doctor as he was advised to. He denies any allergies to medications. Patient was given a 30-day supply of his blood pressure medication on 06/24/2020, and he is reporting he does not have any left which is not possible given that he was given a 30-day supply. Repeat blood pressure 185/131, heart rate 99, O2 sat 99% on room air on exam: non toxic appearing, no acute distress atraumatic, normocephalic EOMI, normal appearance of eyes moist mucus membranes no respiratory distress, no accessory muscle use A&O x4, no focal neuro deficit, normal gait skin is warm, dry, intact pt is presenting for return to work clearance from COVID19 advised pt that we do not clear people to return to work and this would need to be completed by a PCP discussed pts elevated BP and discussed that he should still have plenty of his BP medication left over discussed lifestyle modifications discussed strict return precautions pt is currently asymptomatic, the uptodate medical literature does not recommend emergently lowering asymptomatic BP advised pt Please follow-up with a clinic for return to work clearance. Please follow-up with your primary care doctor regarding elevation in your blood pressure. You need to follow-up with your primary care doctor for chronic management of this condition. Increase your water intake. Eat a low-sodium diet. Incorporate 30 to 60 minutes of daily exercise. Return to emergency room for new or worsening symptoms. medical screening examination performed and there is no threat to life or limb at this time - Exam Vital Signs: Vital Signs 07/04/20 16:18 Temperature 98.3 F Pulse Rate 103 H Respiratory 18 Rate Blood Pressure 192/136 [Right] O2 Sat by Pulse 99 Oximetry MSE screening note: Focused history and physical exam performed. Due to findings the following was ordered: ED Disposition for MSE Clinical Impression: Encounter for medical screening examination Disposition: Z- MED SCREENING EXAM-LEFT Is pt being admited?: No Does the pt Need Aspirin: No Condition: Stable Instructions: Hypertension, Adult, [id number], Low-Sodium Eating Plan Additional Instructions: Please follow-up with a clinic for return to work clearance. Please follow-up with your primary care doctor regarding elevation in your blood pressure. You need to follow-up with your primary care doctor for chronic management of this condition. Increase your water intake. Eat a low-sodium diet. Incorporate 30 to 60 minutes of daily exercise. Return to emergency room for new or worsening symptoms. walk in [facility] Address: [address] [place] [id number] Referrals: ANTHONY JAY MD [Staff Physician] - 2-3 Days [facility] [Provider Group] - 2-3 Days [facility] [Outside] - 2-3 Days Time of Disposition: 17:39 Print Language: HEBREW
== END 2020-07-04 17:43 | disposition left against medical advice (07) ==
LOC: ED 15:30
DX: U07.1 COVID-19 (principal); Z53.21 Procedure and treatment not carried out due to patient leaving prior to being seen by health care provider